=== PATIENT | female | born 1950 | race Caucasian/White ===

== ENCOUNTER → 2016-11-12 | Outpatient (CLI) | payer OTHER | END | disposition home or self-care (01) | LOC: CFH 12:58 → EDSTATUS 13:45 | PROVIDERS: ATTEND Nurse Practitioner | DX: M51.36 Other intervertebral disc degeneration, lumbar region (principal); M48.06 Spinal stenosis, lumbar region | CPT/HCPCS: 72110; 72148 ==

== ENCOUNTER 2020-08-11 15:36 | Emergency (ER) | payer OTHER ==
[~2020-08-11] VITALS: Ht 147.3 cm; Wt 62.0 kg
[2020-08-11] MEDS ORDERED: FENTANYL PF 100 MCG/2ML ONE (15:48)
[2020-08-11] MEDS ORDERED: PLEASE ENTER HEIGHT AND WEIGHT MC SCH (15:50)
--- NOTE | 2020-08-11 15:59 | NUR ---
PT AT XRAY
[2020-08-11] MEDS ORDERED: FENTANYL PF 100 MCG/2ML IVPush ONE (16:00)
[2020-08-11] MEDS ORDERED: SODIUM CHLORIDE FLUSH 10ML SYR IVF ONE (16:00)
--- NOTE | 2020-08-11 16:08 | NUR ---
PT PLACED ON OXYGEN FOR SAFETY AFTER PAIN MEDS ADMIN.
--- NOTE | 2020-08-11 16:21 | NUR ---
LAB AT BEDSIDE.
[2020-08-11] MEDS ORDERED: PROPOFOL 10 MG/ML, 20ML ONE (16:30)
[2020-08-11] MEDS ORDERED: PROPOFOL 10 MG/ML, 20ML IVPush ONE ×2 (16:30→17:30)
[2020-08-11 16:53] LABS: ALBUMIN 3.5 g/dL (3.4-5.0); ANION GAP 3 mmol/L (5-15); CALCIUM 8.8 mg/dL (8.5-10.1); CHLORIDE 111 mmol/L (98-107); CREATININE 0.88 mg/dL (0.55-1.02); TOTAL IRON BINDING CAPACITY 314 mcg/dL (250-450)
[2020-08-11 16:57] LABS: % IRON SATURATION 15 % (20-55); IRON LEVEL 48 mcg/dL (50-170)
[2020-08-11 17:01] LABS: BASOPHILS % (AUTO) 0 % (0-1); EOSINOPHILS % (AUTO) 0 % (1-7); LYMPHOCYTES % (AUTO) 12 % (22-44); MEAN CORPUSCULAR HEMOGLOBIN 28.5 pg (27.0-34.8); MEAN CORPUSCULAR HGB CONC 33.4 g/dL (32.4-35.8); MONOCYTES % (AUTO) 3 % (2-9); NEUTROPHILS % (AUTO) 84 % (42-75); PLATELET COUNT 238 x10^3/uL (130-400); RED BLOOD COUNT 4.88 x10^6/uL (3.82-5.3); RED CELL DISTRIBUTION WIDTH 13.5 % (9.6-15.2)
[2020-08-11 17:02] LABS: MD NO
--- NOTE | 2020-08-11 17:10 | NUR ---
PROCEDURAL SEDATION FOR CLOSED REDUCTION LEFT SHOULDER. CONSENT SIGNED. ED TECHS AT BEDSIDE FOR SHOULDER IMMOBILIZER PLACEMENT. CRASH CART, SUCTION, AMBU BAG AT BEDSIDE. PROPOFOL 100MG ADMIN. PT AWAKE AND TALKING IN FULL SENTENCES. XRAY COMPLETE. PT TO BE DC.
[2020-08-11 17:25] VITALS: BP 136/76
== END 2020-08-11 18:11 | disposition home or self-care (01) ==
LOC: ED 16:10
DX: S43.005A Unspecified dislocation of left shoulder joint, initial encounter (principal); I10 Essential (primary) hypertension; E78.5 Hyperlipidemia, unspecified; W19.XXXA Unspecified fall, initial encounter; Y93.89 Activity, other specified; Y92.098 Other place in other non-institutional residence as the place of occurrence of the external cause; Y99.8 Other external cause status
CPT/HCPCS: 23650; 36415; 73020; 73030; 80048; 82040; 83540; 83550; 85025; 96374; 99152; 99285; J2704; J3010